=== PATIENT | male | born 1950 | race Caucasian/White ===

== ENCOUNTER 2018-09-25 08:48 | Day surgery (SDC) | payer OTHER ==
[2018-09-24 13:14] VITALS: BMI 37.3
[2018-09-25] MEDS ORDERED: LIDOCAINE HCL 2% JELLY 10 ML CARTRIDGE ONE (11:00)
[2018-09-25] MEDS ORDERED: LIDOCAINE HCL 2% 100 MG/5 ML DISP.SYRIN NR ONE (11:03)
[2018-09-25 11:16] VITALS: TEMP 98
[2018-09-25 12:07] VITALS: BP 125/61; PULSE 50
--- NOTE | 2018-09-28 15:55 | PATH ---
Surgical Pathology Report Patient Name: APRIL RIVERA [facility]. Rec. #: [id number] /Age/Gender: 1950 (Age: 67) / M Account: [id number] Location: U-ENDOSCOPY Taken: 09/25/2018 Received: 09/25/2018 Reported: 09/28/2018 Physicians: Lu Frias M.D. Specimen(s) Received A: BX DUODENUM B: BX ANTRUM C: BX GE JUNCTION D: POLYP DESCENDING COLON Clinical History Anemia, rectal bleeding, history of colon adenoma, heartburn, occult GI bleeding Postoperative diagnosis: Hiatal hernia with GERD, colon polyp, hemorrhoid banding Final Diagnosis A. DUODENUM SECOND PORTION AND BULB, BIOPSY: DUODENUM MUCOSA WITH FOCAL MILD NONSPECIFIC CHRONIC INFLAMMATION. NO HISTOLOGIC EVIDENCE OF CELIAC DISEASE. B. ANTRUM, BIOPSY: GASTRIC MUCOSA WITH REACTIVE GASTROPATHY. IMMUNOSTAIN FOR H. PYLORI IS NEGATIVE. NEGATIVE FOR INTESTINAL METAPLASIA. C. GE JUNCTION, BIOPSY: GASTROESOPHAGEAL JUNCTIONAL MUCOSA WITH CHANGES CONSISTENT WITH REFLUX ESOPHAGITIS. POSITIVE FOR INTESTINAL METAPLASIA. D. DESCENDING COLON POLYP, POLYPECTOMY: TUBULAR ADENOMA. Electronically Signed Eliseo Jamison M.D. Gross Description A. Received in formalin, labeled "biopsy duodenum second portion and bulb" are 3 brooks, irregular portions of soft tissue ranging from 0.3-0.5 cm. in greatest dimension. The specimens are submitted in toto in one cassette. B. Received in formalin, labeled "biopsy antrum" are 3 brooks, irregular portions of soft tissue ranging from 0.3-0.6 cm. in greatest dimension. The specimens are submitted in toto in one cassette. C. Received in formalin, labeled "biopsy GE junction" are 2 brooks, irregular portions of soft tissue measuring 0.4 and 0.5 cm. in greatest dimension. The specimens are submitted in toto in one cassette. D. Received in formalin, labeled "polyp descending colon" is a brooks, irregular portion of soft tissue measuring 0.3 cm. in greatest dimension. The specimen is submitted in toto in one cassette. 09/25/2018 saudi09/25/2018
== END 2018-09-25 12:02 | disposition home or self-care (01) ==
LOC: JASU-ENDO 08:48
PROVIDERS: ATTEND Internal Medicine Gastroenterology
PROC: 06LY4CC Occlusion of Hemorrhoidal Plexus with Extraluminal Device, Percutaneous Endoscopic Approach (ICD-10-PCS; 2018-09-25)
PROC: 0DB48ZX Excision of Esophagogastric Junction, Via Natural or Artificial Opening Endoscopic, Diagnostic (ICD-10-PCS; 2018-09-25)
PROC: 0DB68ZX Excision of Stomach, Via Natural or Artificial Opening Endoscopic, Diagnostic (ICD-10-PCS; 2018-09-25)
PROC: 0DBM8ZX Excision of Descending Colon, Via Natural or Artificial Opening Endoscopic, Diagnostic (ICD-10-PCS; principal; 2018-09-25 09:30)
DX: Z12.11 Encounter for screening for malignant neoplasm of colon (principal); D64.9 Anemia, unspecified; Z86.010 Personal history of colon polyps; D12.4 Benign neoplasm of descending colon; K57.30 Diverticulosis of large intestine without perforation or abscess without bleeding; K64.4 Residual hemorrhoidal skin tags; K64.8 Other hemorrhoids; D50.9 Iron deficiency anemia, unspecified; K21.0 Gastro-esophageal reflux disease with esophagitis; K44.9 Diaphragmatic hernia without obstruction or gangrene
CPT/HCPCS: 88305-TC; 88342-TC

== ENCOUNTER 2022-11-25 05:48 | Emergency (ER) | payer OTHER ==
[2022-11-25 05:59] VITALS: PULSE 56; RESP 18; BMI 35.6
[2022-11-25 06:49] VITALS: BP 145/78; TEMP 98
== END 2022-11-25 07:11 | disposition home or self-care (01) ==
LOC: FER 05:48
PROC: 06BY0ZC Excision of Hemorrhoidal Plexus, Open Approach (ICD-10-PCS; principal; 2022-11-25)
PROC: 0T9B70Z Drainage of Bladder with Drainage Device, Via Natural or Artificial Opening (ICD-10-PCS; 2022-11-25)
DX: K64.5 Perianal venous thrombosis (principal); R33.9 Retention of urine, unspecified
CPT/HCPCS: 81003; 87086; 99283-25

== ENCOUNTER 2024-02-27 05:18 | Day surgery (SDC) | payer OTHER ==
[2024-02-24 11:28] VITALS: BMI 38.7
[2024-02-27] MEDS ORDERED: MIDAZOLAM HCL 2 MG/2 ML SINGLE DOSE VIAL ONE (11:40)
[2024-02-27 12:28] VITALS: TEMP 97.7
[2024-02-27 13:22] VITALS: BP 129/61; PULSE 52; RESP 11
== END 2024-02-27 13:15 | disposition home or self-care (01) ==
LOC: JASU-ENDO 05:18
PROVIDERS: ATTEND Internal Medicine Gastroenterology
PROC: 0DBK8ZX Excision of Ascending Colon, Via Natural or Artificial Opening Endoscopic, Diagnostic (ICD-10-PCS; principal; 2024-02-27 12:00)
DX: Z12.11 Encounter for screening for malignant neoplasm of colon (principal); D12.2 Benign neoplasm of ascending colon; K57.30 Diverticulosis of large intestine without perforation or abscess without bleeding; K64.8 Other hemorrhoids; Z86.010 Personal history of colon polyps
CPT/HCPCS: 88305-TC; 88342-TC